=== PATIENT | female | born 1950 | race Caucasian/White ===

== ENCOUNTER → 2017-02-16 | Day surgery (SDC) | payer MEDICARE ==
[~2017-02-16] MED LIST: ACETAMINOPHEN/HYDROcodone 325 MG/7.5 MG TAB ONE; BUPIVACAINE/EPINEPHRINE 0.25% PF 30 ML VIAL INFIL ONE; LACTATED RINGER'S 1000 ML INJ 1,000 ML ONE; MIDAZOLAM HCL 2 MG/2 ML VIAL ONE; MORPHINE SULFATE 4 MG/ML INJ ONE; ONDANSETRON HCL 4 MG/2 ML VIAL IV PUSH ONE; PROPOFOL 200 MG/20 ML AMP IV ONE; ceFAZolin INJ 1,000 MG VIAL ONE
--- NOTE | 2017-02-16 20:12 | TN ---
cc: KARON SINHA MD DATE OF SURGERY: 02/16/2017. PREOPERATIVE DIAGNOSIS: Right knee torn medial meniscus, probable loose body. POSTOPERATIVE DIAGNOSIS: Right knee torn medial meniscus, probable loose body. OPERATIVE PROCEDURE PERFORMED: Right knee arthroscopy with partial medial meniscectomy. SURGEON: Karon Sinha MD. DESCRIPTION OF THE PROCEDURE IN DETAIL: Informed consent was obtained. The patient was taken to the operating room and placed in the supine position on the operating table. She was administered a general anesthesia by Dr. Hua of the anesthesia department. The patient was given a gram of Ancef prior to the initiation of the operative procedure. At that time, a tourniquet was applied to the right thigh. The right leg was prepped with Betadine soap followed by Betadine paint and draping commenced with sterile towel about the tourniquet, sterile U-drape and a stockinette was applied to the foot and calf and this was wrapped with a Coban and an extremity drape was applied. A time-out was held and confirmed. The table was elevated to maximum height. The leg was allowed to flex over the side of the operating table. An 18-gauge spinal needle was utilized to infiltrate 0.25% Marcaine with epinephrine to the lateral infrapatellar portal regions. Infiltration was also performed in the medial infra- patellar portal region and transpatellar tendon portal region. A small incision was made with an 11-blade in the region of the transpatellar tendon and an inflow cannula was placed. A second incision was placed in the region of the lateral infrapatellar portal. The arthroscopic cannula was placed. Diagnostic arthroscopy commenced. The medial compartment was examined. The anterior and medial portions of the medial meniscus appeared intact but posteriorly there was a complex degenerative type tear. A medial portal was established. This was probed and then debrided with the upbiting forceps and Basia meniscal shaver to a stable rim. There were chondromalacic changes noted on the medial femoral condyle and the medial tibial plateau. There were also changes consistent with chondrocalcinosis noted. The scope was maneuvered over the intercondylar notch to the edge of the lateral compartment and leg was placed in a figure-four position. The lateral meniscus appeared intact. There were some mild degenerative changes noted of the lateral femoral condyle. The lateral tibial plateau looked good. The popliteus tendon was normal. The scope was placed in the intercondylar notch. Anterior and posterior cruciate ligaments were normal. The scope was placed in the suprapatellar pouch. This appeared normal. The undersurface of the patella demonstrated some mild degenerative changes as did the trochlear groove. At that time, the scope was passed towards the posterolateral compartment however visualization was not ideal. A loose body was not identified in this area. The C-arm was brought into the room. This area was probed. There was no evidence of a loose body that had access to the knee joint. At that time, the knee was thoroughly irrigated and suctioned and all cannulas were removed. Each portal was closed with a single 4-0 nylon stitch. A second stitch was placed in the medial portal. Band-Aids, 4x4s, Sof-Rol and Micah wrap were applied to the patient's knee. At that time, the tourniquet was deflated. Total tourniquet time was 56 minutes. The patient tolerated the procedure well and was then taken to the recovery room in stable condition. At the completion of the procedure, the sponge count, instrument count and needle count were correct. The estimated blood was less than 10 cc. MD KRAIG Portillo/ALEIDA /6:29 PM /7:58 PM
== END | disposition home or self-care (01) ==
LOC: ESDC 11:45
PROVIDERS: ATTEND Orthopaedic Surgery
DX: S83.231A Complex tear of medial meniscus, current injury, right knee, initial encounter (principal)
CPT/HCPCS: 01400; 29881; 73560; 76000; J0690; J2250; J2270; J2405; J3010; J7120